=== PATIENT | female | born 1940 ===

== ENCOUNTER 2017-11-20 05:29 | Day surgery (SDC) | payer OTHER ==
[2017-11-20] MEDS ORDERED: NEOSTIGMINE METHYLSULFATE 10 MG/10 ML VIAL IV ONE (05:30)
[2017-11-20] MEDS ORDERED: ONDANSETRON 4 MG/2 ML VIAL IV ONE (05:30)
[2017-11-20] MEDS ORDERED: KETOROLAC TROMETHAMINE 30 MG INJ IM ONE (05:30)
[2017-11-20] MEDS ORDERED: EPHEDRINE SULFATE 50 MG/ML AMPUL MC ONE (05:30)
[2017-11-20] MEDS ORDERED: GLYCOPYRROLATE 0.2 MG/ML VIAL MC ONE (05:30)
[2017-11-20] MEDS ORDERED: IV LACTATED RINGERS SOLUTION 1,000 ML BAG IV ONE (05:30)
[2017-11-20] MEDS ORDERED: PROPOFOL 200 MG/20 ML BOTTLE IV ONE (05:30)
[2017-11-20] MEDS ORDERED: LIDOCAINE HCL 2% 20 ML VIAL MC ONE (05:30)
[2017-11-20] MEDS ORDERED: DEXAMETHASONE SOD PHOSPHATE 4 MG INJ IV ONE (05:30)
[2017-11-20] MEDS ORDERED: CEFAZOLIN 50 ML IV ONE (06:15)
[2017-11-20 06:52] LABS: BASOPHILS % (AUTO) 0.9 % (0.0-2.0); EOSINOPHILS # (AUTO) 0.6 K/uL (0.0-0.7); EOSINOPHILS % (AUTO) 11.9 % (0.0-7.0); HEMATOCRIT 38.1 % (31.2-41.9); HEMOGLOBIN 12.8 g/dL (10.9-14.3); LYMPHOCYTES # (AUTO) 1.6 K/uL (20.0-40.0); LYMPHOCYTES % (AUTO) 29.3 % (20.5-51.5); MEAN CORPUSCULAR HEMOGLOBIN 28.8 uug (24.7-32.8); MEAN CORPUSCULAR HGB CONC 34 g/dL (32.3-35.6); MEAN CORPUSCULAR VOLUME 85.6 fL (75.5-95.3); MONOCYTES # (AUTO) 0.5 K/uL (2.0-10.0); MONOCYTES % (AUTO) 9.2 % (0.0-11.0); NEUTROPHILS # (AUTO) 2.6 K/uL (1.8-8.9); NEUTROPHILS % (AUTO) 48.7 % (38.5-71.5); PLATELET COUNT (AUTO) 115 K/uL (179-408); RED BLOOD CELL COUNT(AUTO) 4.45 MIL/uL (3.63-4.92); WHITE BLOOD COUNT (AUTO) 5.4 K/uL (3.8-11.8)
[2017-11-20 06:58] LABS: CARBON DIOXIDE 28 mmol/L (21-32); CHLORIDE 106 mmol/L (98-107); CREATININE 0.9 mg/dL (0.6-1.3); GLUCOSE 98 mg/dL (74-106); UREA NITROGEN, BLOOD 24 mg/dL (7-18)
[2017-11-20 07:04] LABS: ALANINE AMINOTRANSFERASE 12 U/L (14-59); ALKALINE PHOSPHATASE 68 U/L (50-136); ASPARTATE AMINOTRANSFERASE 15 U/L (15-37); BILIRUBIN,TOTAL 0.4 mg/dL (0.2-1.0); TOTAL PROTEIN, SERUM 7.3 g/dL (6.4-8.2)
[2017-11-20] MEDS ORDERED: POLYMYXIN B SULFATE 500,000 UNITS, BACITRACIN 50,000 UNITS, NORMAL SALINE 20 ML MC ONE ×3 (07:45)
[2017-11-20] MEDS ORDERED: ROCURONIUM BROMIDE 50 MG/5 ML VIAL ONE (07:56)
[2017-11-20] MEDS ORDERED: BUPIVACAINE PF 0.5% 30 ML VIAL ONE (08:08)
[2017-11-20] MEDS ORDERED: DESFLURANE ANESTHESIA GAS 240 ML BOTTLE ONE (08:44)
[2017-11-20] MEDS ORDERED: FENTANYL CITRATE 100 MCG/2 ML AMPUL ONE (10:30)
[2017-11-20] MEDS ORDERED: PANTOPRAZOLE SODIUM 40 MG VIAL IV ONE (11:00)
[2017-11-20] MEDS ORDERED: ONDANSETRON 4 MG/2 ML VIAL ONE (11:25)
[2017-11-20] MEDS ORDERED: HYDROCODONE/APAP 5-325MG TABLET ONE (11:45)
== END 2017-11-20 12:15 | disposition home or self-care (01) ==
LOC: DS 05:29
PROVIDERS: ATTEND Orthopaedic Surgery
DX: M75.101 Unspecified rotator cuff tear or rupture of right shoulder, not specified as traumatic (principal); M48.8X6 Other specified spondylopathies, lumbar region; I47.1 Supraventricular tachycardia; Z88.0 Allergy status to penicillin; M81.0 Age-related osteoporosis without current pathological fracture; I12.9 Hypertensive chronic kidney disease with stage 1 through stage 4 chronic kidney disease, or unspecified chronic kidney disease; N18.2 Chronic kidney disease, stage 2 (mild); E66.9 Obesity, unspecified
CPT/HCPCS: 23120; 23412; 36415; 80053; 84484; 85025; 85730; 93005; A4649; A4663; C9113; J0690; J1100; J1885; J2405 ×2; J2710; J3010; J3490 ×8; J7120; 70030-TC; C1713